=== PATIENT | male | born 1950 | race Caucasian/White ===

== ENCOUNTER 2020-09-20 08:47 | Inpatient (IN) | payer MEDICARE ==
[2020-09-20 09:17] LABS: #Eosinphils 0.2 thou/uL (0.0-0.7); #Lymphocytes 1.3 thou/uL (1.20-3.40); #Monocytes 0.4 thou/uL (0.11-0.59); #Neutrophils 4.9 thou/uL (1.40-6.50); %Basophils 0.7 % (0.0-1.0); %Eosinophils 2.3 % (0.0-10.0); %Lymphocytes 18.5 % (21.0-51.0); %Monocytes 5.9 % (0.0-10.0); %Neutrophils 72.7 % (42.0-75.0); Hemoglobin 16.3 g/dL (14.0-18.0); Mean Corpuscular HGB CONC 32.6 g/dL (32.0-36.0); Mean Corpuscular Hemoglobin 29.6 pg (27.0-31.0); Mean Corpuscular Volume 90.8 fL (78.0-98.0); Mean Platelet Volume 6.9 fL (7.4-10.4); Platelet Count 214 thou/uL (130-400); RBC Distribution Width 12.3 % (11.5-14.5); Red Blood Cell (RBC) Count 5.49 mill/uL (4.70-6.10); White Blood Cell (WBC) Count 6.8 thou/uL (4.8-10.8)
--- NOTE | 2020-09-20 09:21 | RAD ---
Portable frontal chest radiograph: 09/20/2020 COMPARISON: None HISTORY: Acute onset of chest pain with vomiting FINDINGS: Lungs are clear. Heart and mediastinal contours appear within normal limits. There is eleva tion of the right hemidiaphragm. IMPRESSION: No acute findings.
[2020-09-20 09:35] LABS: ALT (SGPT) 15 U/L (8-55); AST (SGOT) 20 U/L (5-34); Albumin 4.1 g/dL (3.4-4.8); Alkaline Phosphatase 75 U/L (40-110); Anion Gap 14 mmol/L (10-20); BUN (Urea Nitrogen) 19 mg/dL (8.4-25.7); Bilirubin, Total 0.7 mg/dL (0.2-1.2); Calc. Creatinine Clearance 0 mL/min (70-130); Calcium 8.8 mg/dL (7.8-10.44); Carbon Dioxide 23 mmol/L (23-31); Chloride 107 mmol/L (98-107); Globulin 2.7 g/dL (2.4-3.5); Glucose 144 mg/dL (83-110); Lipase 48 U/L (8-78); Protein, Total 6.8 g/dL (5.8-8.1); Sodium 140 mmol/L (136-145)
[2020-09-20 09:58] LABS: CKMB 1.8 ng/mL (0-6.6)
[2020-09-20] MEDS ORDERED: Nitroglycerin 0.4 MG TAB 1 EACH ONE (09:58)
[2020-09-20] MEDS ORDERED: Morphine 4 MG/ML VIAL ONE (10:10)
[2020-09-20] MEDS ORDERED: Iopamidol 370 76% 100 ML VIAL ONE (10:18)
--- NOTE | 2020-09-20 10:56 | PDOC.FPRHP ---
- History of Present Illness Chief Complaint: Chest pain History of Present Illness: Patient is 69 yo M with PMHx of HTN and HLD presenting to ED for chest pain. Chest pain started at 0745 while standing, getting ready for work with sharp pain, then turned to pressure ~10 mins later. The pain was accompanied by nausea. Pain is midsternal, reports tingling fingers and toes but no radiation of pain. Pain was mildly exacerbated by movement and reports some improvement with lying down. He took 324 mg ASA and then came to ED. Sx were somewhat relieved by nitro in EMS and in ED. The pain is now a 3 from a 6. 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 ED Course: Patient received SL nitro X2 in ED with nitro paste, 4 mg Morphine, 500 mL NS. - History PMHx: HTN, HLD, Depression, migraines (Losartan, simvastatin, citalopram, sumatriptan PRN for migraines) PSHx: Melanoma-Mohs surgery FHx: Mom of VA @ 72, Dad had VA @ 53, possible CABG, Brother with VA @ 53, Diabetes Social: Denies smoking cigarettes, drinking alcohol, drugs NKDA, PCP Greta @ [employer] - Review of Systems General: denies: fever/chills, weight/appetite/sleep changes ENT: denies: nasal congestion, rhinorrhea Respiratory: denies: cough, shortness of breath Cardiovascular: reports: chest pain, palpitation. denies: edema Gastrointestinal: reports: nausea. denies: vomiting, diarrhea, constipation, GI bleeding Genitourinary: denies: incontinence, dysuria Skin: denies: rashes, lesions Musculoskeletal: denies: pain, tenderness Neurological: reports: numbness. denies: syncope, weakness Psychological: reports: anxiety (Stress- previously was on abilify but stopped), depression - Vital signs BP: 162/81, Pulse: 58, Resp: 18, Temp: 98.5 (Oral), Pain: 2, O2 sat: 99 on (Room Air), Time: 09/20/2020 08:53. BP: 172/85, Pulse: 62, Resp: 17, Pain: 2, O2 sat: 99 on (Room Air), Time: 09/20/2020 09:05. BP: 147/77, MAP: 100, Pulse: 53, Resp: 14, Pain: 4, O2 sat: 99 on (Room Air), Time: 09/20/2020 10:00. BP: 137/70, MAP: 92, Pulse: 58, Resp: 17, Temp: 98.3 (Oral), Pain: 2, O2 sat: 95 on (Room Air), Time: 09/20/2020 12:30. BP: 144/75, MAP: 98, Pulse: 56, Resp: 12, Pain: 2, O2 sat: 98 on (Room Air), Time: 09/20/2020 11:00. BP: 136/72, MAP: 93, Pulse: 60, Resp: 17, Pain: 2, O2 sat: 97 on (Room Air), Time: 09/20/2020 12:00. 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 Psychiatric: normal mood and affect, good judgment and insight, intact recent and remote memory FMR H&P: Results - Labs Result Diagrams: 09/20/20 09:04 09/20/20 09:04 Lab results: WBC 6.8 thou/uL (4.8-10.8) 09/20/20 09:04 Hgb 16.3 g/dL (14.0-18.0) 09/20/20 09:04 Hct 49.8 % (42.0-52.0) 09/20/20 09:04 MCV 90.8 fL (78.0-98.0) 09/20/20 09:04 Plt Count 214 thou/uL (130-400) 09/20/20 09:04 Neutrophils % 72.7 % (42.0-75.0) 09/20/20 09:04 Sodium 140 mmol/L (136-145) 09/20/20 09:04 Potassium 4.0 mmol/L (3.5-5.1) 09/20/20 09:04 Chloride 107 mmol/L (98-107) 09/20/20 09:04 Carbon Dioxide 23 mmol/L (23-31) 09/20/20 09:04 BUN 19 mg/dL (8.4-25.7) 09/20/20 09:04 Creatinine 1.11 mg/dL (0.7-1.3) 09/20/20 09:04 Glucose 144 mg/dL (83-110) H 09/20/20 09:04 Calcium 8.8 mg/dL (7.8-10.44) 09/20/20 09:04 Total Bilirubin 0.7 mg/dL (0.2-1.2) 09/20/20 09:04 AST 20 U/L (5-34) 09/20/20 09:04 ALT 15 U/L (8-55) 09/20/20 09:04 Alkaline Phosphatase 75 U/L (40-110) 09/20/20 09:04 CK-MB (CK-2) 1.8 ng/mL (0-6.6) 09/20/20 09:04 B-Natriuretic Peptide Less than 10.0 pg/mL (0-100) 09/20/20 09:04 Serum Total Protein 6.8 g/dL (5.8-8.1) 09/20/20 09:04 Albumin 4.1 g/dL (3.4-4.8) 09/20/20 09:04 Lipase 48 U/L (8-78) 09/20/20 09:04 - EKG Interpretation EKG: EKG X2 reviewed, bradycardia with possible J point elevation in V2-3, elevation decreased from the first to second EKG - Radiology Interpretation Chest x-ray Status: image reviewed by me, report reviewed by me Additional comment: No acute intrathoracic process FMR H&P: A/P - Plan Unstable Angina - Pain occurring with exertion and at rest, improved with nitro - FMR H&P: Upper Level - Plan Date/Time: 09/20/20 1056 HPI: 69 yo M with PMH of HTN, HLD, and family history of VA in 2 male relatives at age 53 presents for chest pain that started this morning at 7:45 while he was getting ready for work. Chest pain was characterized as substernal stabbing and pressure, denied radiation. Associated symptoms include diaphoresis, nausea, dry heaving, and lightheadedness. He reported symptoms may have been worse while walking, and slightly improved while lying down. Nitro improved his chest pain. In the ED, two EKGs were performed which showed bradycardia, no STEMI, prominent T waves in V3-V4. CXR showed no acute findings. Troponin was indeterminate at 0.029, then trended up to 1.9. CKMB was wnl. Lipase normal. He was given ASA 324 mg, nitro, morphine, and 500 ml NS bolus. Cardiology, Dr. Mckeon was consulted and recommended a right sided EKG and therapeutic lovenox. Physical exam: General: Patient appears comfortable lying in bed, slighly diaphoretic Cardiac: RRR, no murmurs. Pulses 2+ BUE. No LE swelling. Lungs: BCTA Abd: soft, nontender, +BS A/P: NSTEMI -Dr. Mckeon consulted, appreciate recommendations -Troponin trended upwards, continue to trend -Continue therapeutic lovenox -Heart score of 7 -A1C, TSH, FLP pending for risk stratification -Nitro PRN -NPO at midnight HTN, HLD, MDD, OCD -Continue home medications Julienne Montemayor MD PGY3 I, Jen Montemayor MD, have evaluated this patient and agree with findings/plan as outlined by security intern resident. Pertinent changes/additions are listed here. Addendum - Attending - Attending Attestation Date/Time: 09/20/20 8900 I personally evaluated the patient and discussed the management with Dr. Montemayor/Jasper. I agree with the History, Examination, Assessment and Plan documented above with any addition or exceptions noted below.
[2020-09-20] MEDS ORDERED: Enoxaparin Sodium 80 MG/0.8 ML SYRINGE ONE (11:59)
[2020-09-20 13:06] LABS: Troponin I 1.946 ng/mL (< 0.028)
[2020-09-20] MEDS ORDERED: Communication Order-Pharmacy FS SCH ×2 (14:30→20:51)
[2020-09-20] MEDS ORDERED: Lidocaine 1% (PF) 30 ML VIAL ONE (14:33)
[2020-09-20] MEDS ORDERED: Heparin 10,000 UNITS/ 10 ML VIAL ONE (14:33)
[2020-09-20] MEDS ORDERED: Nitroglycerin 100MG/250ML BOT 250 ML ONE (15:00)
[2020-09-20] MEDS ORDERED: Verapamil 5 MG/2 ML VIAL ONE (15:00)
[2020-09-20] MEDS ORDERED: Senokot S 8.6-50 MG TAB PO PRN (16:10)
[2020-09-20] MEDS ORDERED: Acetaminophen/Codeine 30-300mg Tablet PO PRN ×2 (16:10)
[2020-09-20] MEDS ORDERED: Sodium Chloride 0.9% 200 ML IV PRN (16:10)
[2020-09-20] MEDS ORDERED: Bisacodyl 10 MG SUPP PR PRN (16:10)
[2020-09-20] MEDS ORDERED: Calcium Carbonate 500 MG ChewTAB PO PRN (16:10)
[2020-09-20] MEDS ORDERED: Ondansetron PF 4 MG/2 ML Vial IVP PRN (16:10)
[2020-09-20] MEDS ORDERED: Nitroglycerin 0.4 MG TAB (25 Tab Bottle) SL PRN (16:10)
[2020-09-20] MEDS ORDERED: Bisacodyl 5 MG TAB PO PRN (16:10)
[2020-09-20] MEDS ORDERED: Ondansetron ODT 4 MG TAB PO PRN (16:10)
[2020-09-20] MEDS ORDERED: Acetaminophen 650 MG Suppository PR PRN (16:10)
[2020-09-20] MEDS ORDERED: Acetaminophen 325 MG TAB PO PRN (16:10)
[2020-09-20 17:01] LABS: Hemoglobin A1c 5.8 % (4.0-6.0)
[2020-09-20 17:26] LABS: SARS-CoV-2 PCR by NAA Not Detected (NotDetected)
[2020-09-20 17:35] LABS: Troponin I 21.907 ng/mL (< 0.028)
[2020-09-20] MEDS ORDERED: Atorvastatin Calcium 40 MG TAB PO SCH (21:00)
[2020-09-20] MEDS ORDERED: Enoxaparin Sodium 80 MG/0.8 ML SYRINGE SC SCH ×2 (21:00)
--- NOTE | 2020-09-20 21:02 | CON ---
DATE OF CONSULTATION: 09/20/2020 INDICATION FOR CONSULTATION: 69-year-old gentleman with eet-LS-mvyaqud elevation myocardial infarction. HISTORY OF PRESENT ILLNESS: Mr. Gunter is a 69-year-old gentleman who has been having some chest pain since about 7:45 this morning. He described it to be in a constant pain in the lower retrosternal area. He was brought to the emergency room and prior to that, he felt clammy, dizzy, nauseated. He was treated with aspirin prior to his going to the emergency room. He also was given nitroglycerin by the ambulance. When he arrived here, was still having pain, was given morphine. EKG did not show any acute changes. Even in right side, EKG does not show any acute changes, but unfortunately, morphine did help his pain, but now the pain is returning. The pain has never completely gone away and based on his presentation symptoms and risk factors, I have advised him to undergo cardiac catheterization since the cardiac enzymes are now positive for myocardial infarction. On admission, his cardiac enzymes showed a troponin I of 0.029. This now increased up to 1.946 and given the presentation most likely indicate a myocardial infarction. I have discussed this with him and he is agreeable to proceed with cardiac catheterization as a definitive etiology of his chest pain and also since he continues to have pain without relief. PAST MEDICAL HISTORY: Significant for hypertension, hypercholesterolemia, OCD, and depression as well as occasional migraines. SOCIAL HISTORY: He is . He has children, who are alive and well. He does not smoke. He has no significant alcohol use. He runs a business for large trucks. FAMILY HISTORY: Positive for myocardial infarction both in his mother, his father and a brother. His mother had from an IL at age 72. His father and brother had MIs at age 53. His father had a bypass surgery. He has a brother who underwent stents but then within the last few months due to COVID. MEDICATIONS: Prior to admission include; 1. Simvastatin. 2. Losartan. 3. Citalopram. 4. Occasional sumatriptan. ALLERGIES: NONE. REVIEW OF SYSTEMS: 12-point review of systems unremarkable except for recently some type of eye infection for which he has been receiving drops. He has also had recently received hearing aids. Otherwise, 12-point review of systems is unremarkable except as noted in the History of Present Illness. PHYSICAL EXAMINATION: GENERAL: Reveals a well-developed, well-nourished, very pleasant gentleman. VITAL SIGNS: Blood pressure 136/71. He is afebrile. Heart rate is 60 and regular. HEENT: Shows the head to be normocephalic and atraumatic. Carotid pulses are present. There are no bruits. CHEST: Clear to auscultation without rales, rhonchi, or wheezing. CARDIOVASCULAR: Reveals a regular rate and rhythm with normal S1, S2. There is no S3 or S4. There were no significant murmurs, heaves, thrills, bruits, or rubs. ABDOMEN: Soft and nontender. Positive bowel sounds are present. There is no organomegaly or masses noted. EXTREMITIES: Femoral pulses are present. Pedal pulses are present. NEUROLOGIC: The patient appears to be intact. There is no edema. IMAGING STUDIES: EKG shows normal sinus rhythm, heart rate in the 50s and 60s. There were no acute changes, but given the fact that he continues to have pain and enzymes continue to increase, I have advised him to undergo cardiac catheterization. IMPRESSION: 1. Acute [id number] elevation myocardial infarction with continued chest pain and rising cardiac enzymes. The patient will undergo urgent cardiac catheterization as a definitive tool to evaluate for underlying severe coronary artery disease. 2. Hypertension. This is under good control at this time. 3. Hypercholesterolemia. I do not have a cholesterol level. He will continue his statin medications. He has been given subcu Lovenox in the emergency room. We will proceed with cardiac catheterization. I did explain to him the procedure, the risks to include bleeding, infection, possible myocardial infarction, CVA, renal insufficiency, allergic contrast reaction, and even possibility of . He understands and agrees to proceed. We will plan for emergent cardiac catheterization. He did receive Lovenox apparently at around noon today, it is now 2:24 in the afternoon. Job ID: [id number]
[2020-09-21] MEDS: Nitroglycerin 2% Ointment 1 INCH/1 GM Packet TOP SCH ×2 (00:12→06:17)
--- NOTE | 2020-09-21 03:24 | CON ---
DATE OF CONSULTATION: 09/20/2020 REASON FOR CONSULTATION: Evaluate the patient for coronary artery bypass grafting. HISTORY OF PRESENT ILLNESS: Mr. Gunter came to the emergency department with chest pain. He said it began today. Never had chest pain or shortness of breath before. 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 While he was being worked up, troponins initially returned at 0.029. His EKG was unremarkable. The troponin later in the day returned at 1.[address] Mckeon was contacted and she urgently took him to the experimental machining lab manager and found to have severe three-vessel disease. Left ventricular function is preserved. I have been asked to see him to discuss coronary artery bypass grafting. PAST MEDICAL HISTORY: 1. Coronary artery disease. 2. Hypertension. 3. Dyslipidemia. 4. Depression. PAST SURGICAL HISTORY: Melanoma surgery on his leg. SOCIAL HISTORY: He does not use tobacco. He is . FAMILY HISTORY: He has significant family history of coronary artery disease in numerous first-degree relatives. HOME MEDICATIONS: 1. Losartan 50 mg daily. 2. Celexa 40 mg daily. 3. Simvastatin 40 mg daily. ALLERGIES: NONE. REVIEW OF SYSTEMS: A 10-point review of systems is performed and is negative except as above. PHYSICAL EXAMINATION: GENERAL: This is a well-developed, well-nourished male, resting comfortably in the bed on the telemetry unit. He has no significant pain at this time. VITAL SIGNS: His height is 5 feet 10 inches and weight is 183 pounds. BSA is 2.03. Temperature is 98.1, pulse is 98 and regular, and blood pressure is 138/65. HEENT: Sclerae nonicteric. Pupils equal and round bilaterally. NECK: Supple. He has no carotid bruits. CHEST: Clear bilaterally. HEART: Rhythm is regular. He has no murmurs. ABDOMEN: Soft and nontender. EXTREMITIES: No cyanosis, clubbing, or edema. VASCULAR: Palpable carotid, radial, femoral, and posterior tibial pulses bilaterally. VENOUS: There are no venous varicosities or venous stasis change. PSYCHIATRIC: He is awake, alert, and oriented to person, place, and time. LABORATORY DATA: Of note, creatinine is 1.1, potassium is 4.0, hemoglobin is 16.3, platelet count 214,000. Chest x-ray shows no dominant lung mass. ASSESSMENT AND PLAN: This is a pleasant 69-year-old gentleman with dlq-KR-[id number] myocardial infarction and severe three-vessel disease. Potential bypassable targets included posterolateral, right coronary, LAD, diagonal, and OM. Risks, benefits, and options of bypass have been discussed with him and he is agreeable to proceed in the morning. Job ID: [id number]
[2020-09-21 05:15] LABS: SARS-CoV-2 PCR by NAA Not Detected (NotDetected)
--- NOTE | 2020-09-21 06:19 | PDOC.FM ---
- Subjective Subjective: Patient feeling well this AM, denies CP, SOB, N/V. He endorses mild bilateral frontal GARLAND, denies vision changes. He has no questions about the planned procedure. - Objective MAR Reviewed: Yes Vital Signs & Weight: Vital Signs (12 hours) Temp Pulse Resp BP Pulse Ox 09/21/20 04:46 98 09/21/20 04:00 98.7 F 80 17 137/74 96 09/21/20 00:00 88 09/20/20 20:35 98 09/20/20 20:10 98.5 F 88 14 136/65 98 Weight Weight 81.465 kg I&O: 09/19/20 09/20/20 09/21/20 06:59 06:59 06:59 Intake Total 480 Output Total 150 Balance 330 Result Diagrams: 09/21/20 13:35 09/21/20 13:35 Phys Exam - Physical Examination Constitutional: NAD resting comfortably Respiratory: no wheezing, no rales, no rhonchi, clear to auscultation bilateral Cardiovascular: RRR, no significant murmur, no rub Gastrointestinal: soft, non-tender, no distention, positive bowel sounds Dx/Plan - Plan Plan: A/P NSTEMI CAD - Patient with NSTEMI, troponin trending to 21 - Cardiology consulted, Dr. Mckeon, appreciate recs -Cath showing significant disease - CV surgery Dr. Andrade to proceed to CABG today -Thx Lovenox received -PRN nitro - Risk stratifying labs - Heart score 7 HTN - Resume home medications after CABG Depression - Continue home medications after CABG Diet: NPO @ 0000 DVT: SCD, thx lovenox- held after 9 pm Code: full PCP: Dr. Hernandes HOOP EXPANDER Dispo: Admit inpatient tele, CABG today. Addendum - Attending - Attending Attestation Date/Time: 09/21/20 3337 I personally evaluated the patient and discussed the management with Dr. Hutchinson. I agree with the History, Examination, Assessment and Plan documented above with any addition or exceptions noted below. seen post cabg. per nurse surgery went well. working towards extubation.
[2020-09-21] MEDS ORDERED: Phenylephrine 10 MG/ML VIAL ONE (06:48)
[2020-09-21] MEDS ORDERED: Fentanyl 100 MCG/2 ML VIAL ONE (06:48)
[2020-09-21] MEDS ORDERED: Dexmedetomidine 200 MCG/2 ML VIAL ONE (06:48)
[2020-09-21] MEDS ORDERED: Midazolam HCl 2 mg/2 ml Vial ONE ×2 (06:48→07:56)
[2020-09-21] MEDS ORDERED: Albumin 5% 500 ML ONE (07:09)
[2020-09-21] MEDS ORDERED: EPINEPHrine 1 MG/ML AMP ONE (07:09)
[2020-09-21] MEDS ORDERED: Bupivacaine PF 0.5% 30 ML VIAL ONE (07:09)
[2020-09-21] MEDS ORDERED: Dexamethasone 4 mg/ml Vial ONE (07:09)
[2020-09-21] MEDS ORDERED: Heparin 10,000 UNITS/1 ML VIAL 30,000 UNITS in Sodium Chloride 0.9% 1,000 ML FS SCH (07:15)
[2020-09-21] MEDS ORDERED: CEFAZOLIN 2 GM in Premix Bag 1 BAG IVPB SCH (07:30)
[2020-09-21] MEDS ORDERED: Nitroglycerin 50 MG/250 ML BOT 250 ML ONE (07:38)
[2020-09-21] MEDS ORDERED: Norepinephrine 4 MG/4 ML VIAL ONE (07:38)
[2020-09-21] MEDS ORDERED: Propofol 500 MG/50 ML VIAL ONE (07:39)
[2020-09-21] MEDS ORDERED: Ketamine 50 MG/ML (10ML VIAL) ONE (07:40)
[2020-09-21] MEDS ORDERED: Fentanyl 250 MCG/5 ML VIAL ONE (07:56)
[2020-09-21] MEDS ORDERED: Losartan 25 MG TAB PO SCH (09:00)
[2020-09-21] MEDS ORDERED: Citalopram 20 MG TAB PO SCH (09:00)
[2020-09-21] MEDS ORDERED: Insulin Regular 300 UNITS/3 ML VIAL ONE (09:33)
[2020-09-21] MEDS ORDERED: Phenylephrine 40 MG in Sodium Chloride 0.9% 250 ML 250 ML IVPB PRN (10:05)
[2020-09-21] MEDS ORDERED: Morphine 2 MG/ML VIAL SLOW IVP PRN (10:05)
[2020-09-21] MEDS ORDERED: Acetaminophen 325 MG TAB PO PRN (10:05)
[2020-09-21] MEDS ORDERED: Fentanyl 100 MCG/2 ML VIAL SLOW IVP PRN ×2 (10:05)
[2020-09-21] MEDS ORDERED: Ondansetron PF 4 MG/2 ML Vial IVP PRN (10:05)
[2020-09-21] MEDS ORDERED: Norepinephrine 8 MG/0.9% NS 250 ML IVPB PRN (10:05)
[2020-09-21] MEDS ORDERED: Hetastarch 6% 500 ML 500 ML IVPB PRN (10:05)
[2020-09-21] MEDS ORDERED: Mag-Al 1200 mg/1200 mg/30 ML UDCUP PO PRN (10:05)
[2020-09-21] MEDS ORDERED: Magnesium 2 GM/50 ML 2 GM in Premix Bag 1 BAG IVPB SCH (10:05)
[2020-09-21] MEDS ORDERED: Potassium Chloride 20 MEQ/100 ML PREMIX BAG IVPB PRN (10:05)
[2020-09-21] MEDS ORDERED: Guaifenesin DM 100-10/5 ML UDCUP PO PRN (10:05)
[2020-09-21] MEDS ORDERED: Bisacodyl 5 MG TAB PO PRN (10:05)
[2020-09-21] MEDS ORDERED: Bisacodyl 10 MG SUPP PR PRN (10:05)
[2020-09-21] MEDS ORDERED: Nitroglycerin 50 MG/250 ML BOT 250 ML IVPB PRN (10:05)
[2020-09-21] MEDS ORDERED: hydrALAZINE 20 MG/ML VIAL SLOW IVP PRN (10:05)
[2020-09-21] MEDS ORDERED: traMADol HCl 50 MG TAB PO PRN ×2 (10:05)
[2020-09-21] MEDS ORDERED: PROPOFOL 200 MG/20 ML VIAL ONE (10:18)
[2020-09-21] MEDS ORDERED: Papaverine 60 MG/2 ML VIAL ONE (10:18)
[2020-09-21] MEDS ORDERED: Mannitol 12.5 GM/50 ML ONE (10:18)
[2020-09-21] MEDS ORDERED: Magnesium Sulfate 1 GM/2 ML VIAL ONE (10:18)
[2020-09-21] MEDS ORDERED: Sodium Bicarb 50 MEQ/50 ML Abboject 8.4% SYRINGE ONE (10:18)
[2020-09-21] MEDS ORDERED: Thrombin 5000 UNITS/5 ML VIAL ONE (10:18)
[2020-09-21] MEDS ORDERED: Aminocaproic Acid 5 GM/20 ML VIAL ONE (10:18)
[2020-09-21] MEDS ORDERED: Lidocaine 1% PF 5 ML VIAL ONE (10:18)
[2020-09-21] MEDS ORDERED: Vecuronium 10 MG VIAL ONE (10:18)
[2020-09-21] MEDS ORDERED: Ketorolac Tromethamine 30 MG/ML VIAL ONE (10:18)
[2020-09-21] MEDS ORDERED: Potassium Chloride 60 MEQ/30 ML VIAL ONE (10:18)
[2020-09-21] MEDS ORDERED: Lidocaine 2% PF 100 mg/5 ml Syringe ONE (10:18)
[2020-09-21] MEDS ORDERED: Protamine Sulfate 250 MG/25 ML VIAL ONE (10:18)
[2020-09-21] MEDS ORDERED: Heparin 5,000 UNITS/ML VIAL ONE (10:18)
[2020-09-21] MEDS ORDERED: Rocuronium Bromide 10 MG/ML (10ML VIAL) ONE (10:18)
[2020-09-21] MEDS ORDERED: Calcium Chloride 1 GM/10 ML Abboject SYRINGE ONE (10:18)
[2020-09-21] MEDS ORDERED: Heparin 30,000 units/30 ml VIAL ONE (10:18)
[2020-09-21] MEDS ORDERED: Cardioplegic Soln 1,000 ML BAG ONE (10:18)
[2020-09-21] MEDS ORDERED: Ondansetron PF 4 MG/2 ML Vial ONE (10:18)
[2020-09-21] MEDS ORDERED: Dextrose 50% Abboject 50 ML SYRINGE SLOW IVP PRN (11:00)
[2020-09-21] MEDS ORDERED: Dextrose 5% in Water 1,000 ML IV PRN (11:00)
--- NOTE | 2020-09-21 13:34 | OP ---
DATE OF PROCEDURE: 09/21/2020 PREOPERATIVE DIAGNOSES: Coronary artery disease/status post non-ST elevation myocardial infarction/hypertension/dyslipidemia. POSTOPERATIVE DIAGNOSES: Coronary artery disease/status post non-ST elevation myocardial infarction/hypertension/dyslipidemia. PROCEDURES PERFORMED: 1. Coronary artery bypass grafting x4 -. a. Left internal mammary artery to 1.5 mm distal left anterior descending - good conduit and target. b. Reverse saphenous vein to 1.5 mm diagonal - good conduit and target. c. Reverse saphenous vein to 1.5 mm obtuse marginal-1 - good conduit target. d. Reverse saphenous vein to 1.5 mm distal right coronary artery - good conduit and target. Note, the PDA/PL system and the terminal obtuse marginal system were too small to bypass. BATCHER OPERATOR: Ti Valle MD ANESTHESIA: General endotracheal, Dr. Roge Downing and Dr. Jarrell Jesus. PUMP TIME: 72 minutes. CROSS-CLAMP TIME: 41 minutes. LOW-CORE TEMPERATURE: 34 degrees Celsius. CARD FIXER: Kane Kincaid. DRAINS: 24-Montenegrin chest tubes x2. DRIPS: None. TRANSFUSIONS: None. DESCRIPTION OF PROCEDURE: After appropriate consent was obtained, the patient was brought to the operating room and placed in supine position on the operating table. Appropriate central line and monitors were placed and general endotracheal anesthesia was induced. Chest, abdomen, and legs were prepped and draped in usual sterile fashion. Greater saphenous vein was harvested from the left lower extremity utilizing an endoscopic technique. Wounds were irrigated and closed in layers. Median sternotomy was performed. Left internal mammary artery was harvested as a pedicle graft. The patient was systemically heparinized. Distal pedicle was divided and infused with papaverine. Thymic fat and pericardium divided with electrocautery. Pericardial stay sutures were placed. Aortic and atrial cannulation was performed. After adequate heparinization, retrograde prime was performed and the patient was placed on cardiopulmonary bypass. Distal targets were marked. Aortic cross-clamp was applied and antegrade sanguineous cardioplegic arrest was obtained. 1 L of antegrade cold [place] cardioplegia was given. Topical cold solution was used. Reverse saphenous vein was anastomosed to the distal RCA in end-to-side fashion with running 7-0 Prolene suture. Anastomosis was tested and was hemostatic. Reverse saphenous vein was anastomosed to the OM in end-to-side fashion with running 7-0 Prolene suture. Anastomosis was tested and was hemostatic. Reverse saphenous vein was anastomosed to diagonal in end-to-side fashion with running 7-0 Prolene suture. Anastomosis was tested and was hemostatic. Mammary artery was brought through a window in the pericardium and anastomosed to LAD in end-to-side fashion with running 7-0 Prolene suture. On release of mammary clamps, good hooding of the anastomosis and good distal flow. Pedicle was secured with interrupted 6-0 Prolene suture. Cross-clamp was removed and partial occluding clamp placed. Saphenous vein to the OM and RCA were anastomosed to the aortic root. Saphenous vein to the diagonal was anastomosed to the sidewall of the OM graft. Partial occluding clamp was removed and graft was deaired. Anastomoses were all inspected for hemostasis, which was good. The patient was warmed and weaned off cardiopulmonary bypass. After resumption of sinus rhythm, good hemodynamics, temperature greater than 36.5, bypass was discontinued. Transfusion was given. Protamine was administered. Decannulation was performed and pursestring suture secured. A 24-Montenegrin chest tubes were placed in mediastinum. Vancomycin paste was placed on the sternal edges. After adequate hemostasis had been obtained, sternum was closed with #7 wire. Sternum was treated with platelet rich plasma. Wires were twisted and buried. Wounds irrigated, treated with platelet poor plasma and closed in multiple layers. Needle, sponge, and instrument counts were all reported as correct at the end of the procedure. The patient tolerated the procedure well, transferred to the intensive care unit in stable, but critical condition. Job ID: [id number]
[2020-09-21] MEDS: D5 1/2 NS w/20 mEq KCL 1,000 ML IV SCH (13:51)
[2020-09-21] MEDS: CEFAZOLIN 2 GM in Premix Bag 1 BAG IVPB SCH ×2 (13:51→22:16)
[2020-09-21] MEDS: Aspirin Chewable 81 MG TAB PO SCH (13:52)
[2020-09-21] MEDS: Famotidine/PF 20 mg/2ml Vial SLOW IVP SCH ×2 (13:53→20:42)
[2020-09-21] MEDS: Ketorolac Tromethamine 30 MG/ML VIAL IVP SCH ×3 (13:55→23:23)
--- NOTE | 2020-09-21 13:56 | RAD ---
Chest AP view INDICATION: History of open heart surgery COMPARISON: Prior exam dated September 20, 2020 FINDINGS: Lungs: There is bibasilar atelectasis, left greater than right. Cardiac silhouette: There is midline sternotomy changes. There is accentuation of the cardiac silhou ette due to exam technique. Pulmonary vasculature: Normal Pleural spaces: There is a left-sided thoracostomy tube. No definite pneumothorax is evident. Upper abdomen: No abnormality seen. Osseous structures: No acute osseous abnormality. Additional findings: Patient is intubated with the ET tube tip seen at the level of thoracic inlet. There is a right subclavian central venous catheter now in place with the tip in the region of the right atrium. There is a midline mediastinal drain. IMPRESSION: Postoperative chest with bibasilar atelectasis. No pneumothorax.
[2020-09-21 13:58] LABS: Hemoglobin 12.8 g/dL (14.0-18.0); Mean Corpuscular HGB CONC 31.1 g/dL (32.0-36.0); Mean Corpuscular Hemoglobin 27.7 pg (27.0-31.0); Mean Corpuscular Volume 89.1 fL (78.0-98.0); Mean Platelet Volume 6.8 fL (7.4-10.4); Platelet Count 169 thou/uL (130-400); RBC Distribution Width 12.3 % (11.5-14.5); Red Blood Cell (RBC) Count 4.63 mill/uL (4.70-6.10); White Blood Cell (WBC) Count 22.5 thou/uL (4.8-10.8)
[2020-09-21 13:59] LABS: Calcium, Ionized (arterial) 1.14 mmol/L (1.12-1.30); Carboxyhemoglobin (COHb) 0.3 gm% (0.0-3.0); Hemoglobin (Hb) 13.9 g/dL (14.0-18.0); O2 Tension (PaO2), arterial 189.4 mmHg (> 70.0); pH, Arterial 7.36 (7.35-7.45)
[2020-09-21 14:01] LABS: INR-International Normal Ratio 1.2; PTT 29.4 sec (22.9-36.1); Prothrombin Time 15.1 sec (12.0-14.7)
[2020-09-21 14:03] LABS: Puncture Site Arterial Line
[2020-09-21 14:10] LABS: Glucose 142 mg/dL (83-110)
[2020-09-21 14:13] LABS: Anion Gap 10 mmol/L (10-20); BUN (Urea Nitrogen) 13 mg/dL (8.4-25.7); Calc. Creatinine Clearance 101 mL/min (70-130); Calcium 7.8 mg/dL (7.8-10.44); Carbon Dioxide 22 mmol/L (23-31); Chloride 113 mmol/L (98-107); Glucose 141 mg/dL (83-110); Potassium 3.8 mmol/L (3.5-5.1); Sodium 141 mmol/L (136-145)
[2020-09-21 14:15] LABS: Band 22 % (5-11); Basophilic Stippling SLIGHT = 1-2 cells (100X) (None Seen); Lymphocytes 3 % (21-51); MDiff Complete? YES; Monocytes 5 % (0-10); Neutrophil 65 % (42-75); Platelet Morphology Comment Appears Adequate; Polychromasia SLIGHT = 2-3 cells (100X) (0-2/hpf); Reactive Lymphocytes 4 % (0-10)
[2020-09-21] MEDS: Insulin Regular 300 UNITS/3 ML VIAL SC PRN ×2 (14:28→22:35)
[2020-09-21 14:49] LABS: Potassium 3.9 mmol/L (3.5-5.1)
[2020-09-21 14:55] LABS: Actual Bicarbonate (HCO3a) 17.5 mEq/L (22-28); Base Excess (BEa) -5.1 mEq/L (-2.0 to +3.0); CO2 Tension 26.7 mmHg (35.0-45.0); Calcium, Ionized (arterial) 1.07 mmol/L (1.12-1.30); Carboxyhemoglobin (COHb) 0.5 gm% (0.0-3.0); Hemoglobin (Hb) 14.1 g/dL (14.0-18.0); Potassium - ABG Lab 3.68 mmol/L (3.70-5.30); pH, Arterial 7.43 (7.35-7.45)
[2020-09-21 14:56] LABS: ALV-art Gradient 75.825 mmHg (0-20); Puncture Site Arterial Line
[2020-09-21 19:04] LABS: Hemoglobin 14.2 g/dL (14.0-18.0)
[2020-09-21 19:27] LABS: Potassium 4.7 mmol/L (3.5-5.1)
--- NOTE | 2020-09-21 20:40 | EKG ---
Test Reason : POST CABG Blood Pressure : / mmHG Vent. Rate : 069 BPM Atrial Rate : 069 BPM P-R Int : 160 ms QRS Dur : 080 ms QT Int : 462 ms P-R-T Axes : 050 -64 093 degrees QTc Int : 495 ms Normal sinus rhythm Left axis deviation Low voltage QRS Inferior infarct (cited on or before 20-SEP-2020) Cannot rule out Anterior infarct (cited on or before 20-SEP-2020) T wave abnormality, consider lateral ischemia Abnormal ECG When compared with ECG of 20-SEP-2020 11:42, (Unconfirmed) Serial changes of Anterior infarct Present Confirmed by Nicola ARGUETA ([id number]) on 09/21/2020 8:39:34 PM Referred By: Malia FIGUEROA Confirmed By:Nicola ARGUETA
[2020-09-21] MEDS: Atorvastatin Calcium 20 MG TAB PO SCH (20:42)
[2020-09-22 04:16] LABS: #Lymphocytes 1.1 thou/uL (1.20-3.40); #Monocytes 1.2 thou/uL (0.11-0.59); #Neutrophils 10.7 thou/uL (1.40-6.50); %Basophils 0.2 % (0.0-1.0); %Eosinophils 0.1 % (0.0-10.0); %Lymphocytes 8.6 % (21.0-51.0); %Monocytes 8.9 % (0.0-10.0); %Neutrophils 82.2 % (42.0-75.0); Hemoglobin 13.4 g/dL (14.0-18.0); Mean Corpuscular HGB CONC 32.8 g/dL (32.0-36.0); Mean Corpuscular Hemoglobin 29.4 pg (27.0-31.0); Mean Corpuscular Volume 89.8 fL (78.0-98.0); Mean Platelet Volume 7.3 fL (7.4-10.4); Platelet Count 167 thou/uL (130-400); RBC Distribution Width 12.4 % (11.5-14.5); Red Blood Cell (RBC) Count 4.54 mill/uL (4.70-6.10); White Blood Cell (WBC) Count 13.1 thou/uL (4.8-10.8)
[2020-09-22 04:34] LABS: Anion Gap 9 mmol/L (10-20); BUN (Urea Nitrogen) 13 mg/dL (8.4-25.7); Calc. Creatinine Clearance 95 mL/min (70-130); Calcium 7.6 mg/dL (7.8-10.44); Carbon Dioxide 26 mmol/L (23-31); Chloride 109 mmol/L (98-107); Glucose 123 mg/dL (83-110); Potassium 4.3 mmol/L (3.5-5.1); Sodium 140 mmol/L (136-145)
[2020-09-22] MEDS: Insulin Regular 300 UNITS/3 ML VIAL SC PRN (04:47)
--- NOTE | 2020-09-22 05:07 | PDOC.FM ---
- Subjective Subjective: Patient feels well this morning. He is sitting up in bed drinking his coffee. Reports he ate a sandwich yesterday for supper. He reports his pain is well controlled s/p CABG yesterday. Reports he is passing gas. He was on nitro drip overnight, this was DC this morning. Art line is removed. - Objective Vital Signs & Weight: Vital Signs (12 hours) Temp Pulse Ox 09/22/20 04:00 97.8 F 09/22/20 00:00 98.3 F 09/21/20 20:00 95 09/21/20 19:00 98.3 F 09/21/20 18:27 98 Weight Admit Weight 83.325 kg Weight 81.465 kg Most Recent Monitor Data Heart Rate from ECG 78 NIBP 126/70 NIBP BP-Mean 88 Respiration from ECG 9 SpO2 96 I&O: 09/20/20 09/21/20 09/22/20 06:59 06:59 06:59 Intake Total 480 961.1 Output Total 150 1030 Balance 330 -68.9 Result Diagrams: 09/22/20 03:45 09/22/20 03:45 Phys Exam - Physical Examination Constitutional: NAD Respiratory: no wheezing, clear to auscultation bilateral Cardiovascular: RRR, no significant murmur Gastrointestinal: soft, non-tender, no distention, positive bowel sounds Musculoskeletal: pulses present trace pitting edema LLE Neurological: non-focal, moves all 4 limbs Psychiatric: normal affect, A&O x 3 Dx/Plan - Plan Plan: CAD and NSTEMI s/p 4V CABG - Presented with chest pain due to NSTEMI, was taken for angiocath which showed multi vessel disease - S/p 4V CABG by CV suglurdes Andrade 09/21/20. - Cardiology Dr Mckeon consulted, appreciate recs - CV Surgery Dr. Andrade consulted, appreciate recs - Pain control with tylenol, tramadol, toradol, fentanyl - Continue atorvastatin 20 mg, aspirin - Chest tube: 230 ml out - Admitted to ICU HTN - maintain goal SBP per CV surgery recs - PRN albumin & nitro drip to maintain appropriate SBP - art line now removed MDD - Resume home medication Lines: bilat chest tubes, Rt subclavian CVC Diet: Post CABG DVT ppx: per CV surgery recs Code: full PCP: Dr. Hernandes CONTRACT MANAGER Dispo: Patient is stable s/p CABG, continue monitoring in ICU. Appreciate CV surgery recommendations. Addendum - Attending - Attending Attestation Date/Time: 09/22/20 3743 I personally evaluated the patient and discussed the management with Dr. Montemayor. I agree with the History, Examination, Assessment and Plan documented above with any addition or exceptions noted below. post cabg care.
[2020-09-22] MEDS: Ketorolac Tromethamine 30 MG/ML VIAL IVP SCH ×3 (05:42→17:47)
[2020-09-22] MEDS: CEFAZOLIN 2 GM in Premix Bag 1 BAG IVPB SCH (05:42)
[2020-09-22 07:04] LABS: Cardiac Risk 4.5 (Less than 4.5)
--- NOTE | 2020-09-22 08:31 | RAD ---
EXAM: Portable chest PROVIDED CLINICAL HISTORY: Post open heart COMPARISON: 09/21/2020 FINDINGS: Cardiac and mediastinal silhouette unchanged in appearance. Median sternotomy changes, mediastinal an d pleural drainage catheters and right subclavian central line are redemonstrated. Elevation of the right hemidiaphragm persists with adjacent subsegmental atelectatic change. No focal consolidation, p leural fluid or pneumothorax evident. IMPRESSION: Stable radiographic appearance of chest.
[2020-09-22] MEDS ORDERED: Magnesium 2 GM/50 ML 2 GM in Premix Bag 1 BAG IVPB SCH (09:00)
[2020-09-22] MEDS: Aspirin Chewable 81 MG TAB PO SCH (09:41)
[2020-09-22] MEDS: Famotidine/PF 20 mg/2ml Vial SLOW IVP SCH ×2 (09:43→21:55)
--- NOTE | 2020-09-22 10:36 | PDOC.CPN ---
- Subjective Date: 09/22/20 Time: 10:34 Interval history: He is doing well. Sitting on the chair having breakfast. Passing gas. No BM. - Review of Systems General: denies: fever/chills, weight/appetite/sleep changes, night sweats, fatigue Respiratory: denies: cough, congestion, shortness of breath, exercise intolerance Cardiovascular: denies: chest pain, palpitation, edema, paroxysmal nocturnal dyspnea, orthopnea Gastrointestinal: denies: nausea, vomiting, diarrhea, constipation, abd pain, GI bleeding Musculoskeletal: denies: pain, tenderness, stiffness, swelling, arthritis/arthralgias Neurological: denies: numbness, syncope, seizure, weakness - Objective Allergies/Adverse Reactions: Allergies Allergy/AdvReac Type Severity Reaction Status Date / Time No Known Allergies Allergy Unverified 09/20/20 15:21 Visit Medications: Current Medications Acetaminophen (Acetaminophen 325 Mg Tab) 650 mg PO Q6H PRN PRN Reason: Headache/Fever Or Mild Pain Al Hydroxide/Mg Hydroxide (Mag-Al 1200 Mg/1200 Mg/30 Ml Udcup) 30 ml PO Q4H PRN PRN Reason: Indigestion Albuterol/Ipratropium (Ipratropium/Albuterol Sulfate 3 Ml Neb) 3 ml NEB [id number] PRN PRN Reason: SOB Aspirin (Aspirin Chewable 81 Mg Tab) 81 mg PO DAILY [facility] Last Admin: 09/22/20 09:41 Dose: 81 mg Documented by: Atorvastatin Calcium (Atorvastatin Calcium 20 Mg Tab) 20 mg PO QPM [facility] Last Admin: 09/21/20 20:42 Dose: 20 mg Documented by: Bisacodyl (Bisacodyl 5 Mg Tab) 10 mg PO Q12H PRN PRN Reason: Constipation Bisacodyl (Bisacodyl 10 Mg Supp) 10 mg ND Q12H PRN PRN Reason: Constipation Dextrose/Water (Dextrose 50% Abboject 50 Ml Syringe) 25 gm SLOW IVP PRN PRN PRN Reason: PER HYPOGLYCEMIC PROTOCOL Famotidine (Famotidine/Pf 20 Mg/2ml Vial) 20 mg SLOW IVP Q12HR [facility] Last Admin: 09/22/20 09:43 Dose: 20 mg Documented by: Fentanyl (Fentanyl 100 Mcg/2 Ml Vial) 25 mcg SLOW IVP Q2H PRN PRN Reason: Moderate Pain (4-6) Stop: 09/23/20 08:24 Fentanyl (Fentanyl 100 Mcg/2 Ml Vial) 50 mcg SLOW IVP Q2H PRN PRN Reason: Severe Pain (7-10) Stop: 09/23/20 08:24 Glucagon (Glucagon 1 Mg/Ml Vial) 1 mg SC PRN PRN PRN Reason: PER HYPOGLYCEMIC PROTOCOL Guaifenesin/Dextromethorphan (Guaifenesin Dm 100-10/5 Ml Udcup) 15 ml PO Q4H PRN PRN Reason: Cough Hydralazine HCl (Hydralazine 20 Mg/Ml Vial) 10 mg SLOW IVP Q6H PRN PRN Reason: To Maintain SBP< 140mmHG Nitroglycerin/Dextrose (Nitroglycerin 50 Mg/250 Ml Bot) 250 mls @ 0 mls/hr IVPB PRN PRN; Protocol PRN Reason: To Maintain SBP< 140mmHG Last Admin: 09/21/20 14:21 Dose: 250 mls Documented by: Potassium Chloride/Dextrose/Sod Cl (D5 1/2 Ns W/20 Meq Kcl) 1,000 mls @ 40 mls/hr IV .Q24H [facility] Last Admin: 09/21/20 13:51 Dose: 1,000 mls Documented by: Magnesium Sulfate 2 gm/ Device 50 mls @ 50 mls/hr IVPB QAM [facility] Stop: 09/23/20 09:59 Last Admin: 09/22/20 09:42 Dose: 50 mls Documented by: Norepinephrine Bitartrate (Levophed) 250 mls @ 0 mls/hr IVPB PRN PRN; Protocol PRN Reason: To maintain SBP > 90 mmHG Phenylephrine HCl 40 mg/ (Sodium Chloride) 254 mls @ 0 mls/hr IVPB INF PRN; Protocol PRN Reason: To maintain SBP > 90 mmHG Dextrose/Water (D5w) 1,000 mls @ 0 mls/hr IV INF PRN PRN Reason: PRN HYPOGLYCEMIC PROTOCOL Insulin Human Regular (Insulin Regular 300 Units/3 Ml Vial) 0 units SC Q4H PRN; Protocol PRN Reason: POST CABG SLIDING SCALE Last Admin: 09/22/20 04:47 Dose: 2 units Documented by: Ketorolac Tromethamine (Ketorolac Tromethamine 30 Mg/Ml Vial) 30 mg IVP Q6HR [facility] Stop: 09/24/20 12:01 Last Admin: 09/22/20 05:42 Dose: 30 mg Documented by: Morphine Sulfate (Morphine 2 Mg/Ml Vial) 2 mg SLOW IVP Q15MIN PRN PRN Reason: Severe Pain (7-10) Ondansetron HCl (Ondansetron Pf 4 Mg/2 Ml Vial) 4 mg IVP Q6H PRN PRN Reason: Nausea/Vomiting Potassium Chloride (Potassium Chloride 20 Meq/100 Ml Premix Bag) 20 meq IVPB PRN PRN PRN Reason: K level </= 4.0 Last Admin: 09/21/20 14:38 Dose: 20 meq Documented by: Sodium Chloride (Flush - Normal Saline 10 Ml Syringe) 10 ml IVF PRN PRN PRN Reason: Saline Flush Tramadol HCl (Tramadol Hcl 50 Mg Tab) 50 mg PO Q12H PRN PRN Reason: Pain Tramadol HCl (Tramadol Hcl 50 Mg Tab) 100 mg PO Q12H PRN PRN Reason: Pain Vital Signs & Weight: Vital Signs Temp Pulse Ox 09/22/20 08:00 97 09/22/20 07:13 94 L 09/22/20 07:00 99 F 09/22/20 04:00 97.8 F 09/22/20 00:00 98.3 F Admit Weight 183 lb 11.2 oz Weight 188 lb 0.869 oz - Physical Exam General: alert & oriented x3 HEENT: mucus membranes moist Neck: supple neck Cardiac: regular rate and rhythm Lungs: normal breath sounds Neuro: grossly intact Abdomen: active bowel sounds Extremities: no edema Skin: clear Musculoskeletal: no pain - Labs Result Diagrams: 09/22/20 03:45 09/22/20 03:45 Troponin/CKMB CK-MB (CK-2) 1.8 ng/mL (0-6.6) 09/20/20 09:04 Troponin I 21.907 ng/mL (< 0.028) H* 09/20/20 16:42 - Telemetry Sinus rhythms and dysrhythmias: sinus rhythm - Assessment/Plan Assessment/Plan: 1. NSTEMI 2. Multivessel CAD 3. S/P CABG 09/21 4. HTN 5. HLP. PLAN: - ASA/Statin for life - BB and ACEI once BP allow - PT as tolerated.
[2020-09-22] MEDS: D5 1/2 NS w/20 mEq KCL 1,000 ML IV SCH (11:48)
[2020-09-22] MEDS ORDERED: Bisacodyl 10 MG SUPP PR PRN (17:00)
[2020-09-22] MEDS ORDERED: Mag-Al 1200 mg/1200 mg/30 ML UDCUP PO PRN (17:00)
[2020-09-22] MEDS ORDERED: Nitroglycerin 0.4 MG TAB (25 Tab Bottle) SL PRN (17:00)
[2020-09-22] MEDS ORDERED: Mineral Oil ENEMA PR PRN (17:00)
[2020-09-22] MEDS ORDERED: Bisacodyl 5 MG TAB PO PRN (17:00)
[2020-09-22] MEDS ORDERED: Zolpidem Tartrate 5 MG TAB PO PRN (17:00)
[2020-09-22] MEDS ORDERED: Guaifenesin DM 100-10/5 ML UDCUP PO PRN (17:00)
[2020-09-22] MEDS ORDERED: diphenhydrAMINE 25 MG CAP PO PRN (17:00)
[2020-09-22] MEDS: Furosemide 40 MG TAB PO SCH (17:48)
[2020-09-22] MEDS ORDERED: Sodium Chloride 0.9% 10 ML ONE ×2 (21:39→23:23)
[2020-09-22] MEDS: Atorvastatin Calcium 20 MG TAB PO SCH (21:55)
[2020-09-23] MEDS: Ketorolac Tromethamine 30 MG/ML VIAL IVP SCH ×4 (00:10→17:38)
[2020-09-23 04:46] LABS: #Basophils 0.1 thou/uL (0.0-0.2); #Eosinphils 0.1 thou/uL (0.0-0.7); #Lymphocytes 1.6 thou/uL (1.20-3.40); #Neutrophils 8.4 thou/uL (1.40-6.50); %Basophils 0.5 % (0.0-1.0); %Lymphocytes 14.4 % (21.0-51.0); %Monocytes 9.3 % (0.0-10.0); %Neutrophils 74.9 % (42.0-75.0); Hemoglobin 11.9 g/dL (14.0-18.0); Mean Corpuscular HGB CONC 33.1 g/dL (32.0-36.0); Mean Corpuscular Hemoglobin 29.7 pg (27.0-31.0); Mean Corpuscular Volume 89.7 fL (78.0-98.0); Mean Platelet Volume 7.6 fL (7.4-10.4); Platelet Count 150 thou/uL (130-400); RBC Distribution Width 12.1 % (11.5-14.5); Red Blood Cell (RBC) Count 4.01 mill/uL (4.70-6.10); White Blood Cell (WBC) Count 11.2 thou/uL (4.8-10.8)
[2020-09-23 05:08] LABS: Anion Gap 11 mmol/L (10-20); BUN (Urea Nitrogen) 23 mg/dL (8.4-25.7); Calc. Creatinine Clearance 81 mL/min (70-130); Calcium 7.3 mg/dL (7.8-10.44); Carbon Dioxide 24 mmol/L (23-31); Chloride 108 mmol/L (98-107); Glucose 113 mg/dL (83-110); Potassium 4.1 mmol/L (3.5-5.1); Sodium 139 mmol/L (136-145)
[2020-09-23] MEDS ORDERED: Sodium Chloride 0.9% 10 ML ONE (05:41)
--- NOTE | 2020-09-23 07:15 | PDOC.FM ---
- Subjective Subjective: Patient reports he is doing well. Pain is well controlled. He ate well yesterday. Reports some chest pain with cough and movement, denies SOB or palpitations. NSR overnight. - Objective Vital Signs & Weight: Vital Signs (12 hours) Temp Pulse Resp BP Pulse Ox 09/23/20 04:00 99.8 F H 90 18 104/60 98 09/23/20 03:28 98 09/23/20 00:15 18 98 09/23/20 00:10 98.8 F 86 20 106/57 L 93 L 09/22/20 19:50 99.2 F 88 18 105/76 94 L Weight Admit Weight 83.325 kg Weight 83.915 kg Most Recent Monitor Data Heart Rate from ECG 78 NIBP 105/62 NIBP BP-Mean 76 Respiration from ECG 17 SpO2 98 I&O: 09/22/20 09/23/20 09/24/20 06:59 06:59 06:59 Intake Total 1361.1 600 Output Total 1090 1215 Balance 271.1 -615 Result Diagrams: 09/23/20 03:56 09/23/20 03:56 Phys Exam - Physical Examination Constitutional: NAD Respiratory: no wheezing, clear to auscultation bilateral Cardiovascular: RRR, no significant murmur Gastrointestinal: soft, non-tender Musculoskeletal: no edema, pulses present Neurological: non-focal, moves all 4 limbs Psychiatric: normal affect, A&O x 3 Skin: normal turgor, cap refill <2 seconds Dx/Plan - Plan Plan: CAD and NSTEMI s/p 4V CABG - Presented with chest pain due to NSTEMI, was taken for angiocath which showed multi vessel disease - S/p 4V CABG by CV sugery Dr. Andrade 09/21/20. - Cardiology Dr Mckeon consulted, appreciate recs -Start BB and SANFORD once BP will allow - CV Surgery Dr. Andrade consulted, appreciate recs - Pain control with tylenol, tramadol, toradol, fentanyl - Continue atorvastatin 20 mg, aspirin - Chest tube: 160 ml out - AM CXR pending HTN - BB and SANFORD once BP will allow MDD - Resume home medication Diet:HH DVT ppx: per CV surgery recs Code: full PCP: Dr. Hernandes [employer]ARED SERVICES MANAGER Dispo: Patient is stable on telemetry floor. Continue PT. Appreciate CV surgery recommendations. Julienne Montemayor MD PGY3 Addendum - Attending - Attending Attestation Date/Time: 09/23/20 [id number] I personally evaluated the patient and discussed the management with Dr. Montemayor. I agree with the History, Examination, Assessment and Plan documented above with any addition or exceptions noted below. will start ACEI and BB once BP improved. pain controlled. awaiting specialist recs.
--- NOTE | 2020-09-23 08:06 | RAD ---
EXAM: CHEST ONE VIEW HISTORY: Post CABG. COMPARISON: 09/22/2020 FINDINGS: Postoperative changes related to median sternotomy are again seen. Cardiac silhouette is magnified by projection and shallow depth inspiration. Right subclavian central venous catheter, mediastinal drain, and left-sided thoracostomy tube remain in place. Atelectasis is present at the left lung base . No pneumothorax is visualized. No other interval change. IMPRESSION: Lines and tubes in place as described above with volume loss left lung base.
[2020-09-23] MEDS: Aspirin Chewable 81 MG TAB PO SCH (09:26)
[2020-09-23] MEDS: Citalopram 20 MG TAB PO SCH (09:26)
[2020-09-23] MEDS: Famotidine/PF 20 mg/2ml Vial SLOW IVP SCH ×2 (09:26→20:51)
--- NOTE | 2020-09-23 16:47 | PDOC.CPN ---
- Subjective Date: 09/23/20 Time: 16:46 Interval history: He is doing well. he had a BM this morning. Has been walking with PT without issues. Has a small hematoma on his left thigh from venous harvesting. Had chest tubes removed. - Review of Systems General: denies: fever/chills, weight/appetite/sleep changes, night sweats, fatigue Respiratory: denies: cough, congestion, shortness of breath, exercise intolerance Cardiovascular: denies: chest pain, palpitation, edema, paroxysmal nocturnal dyspnea, orthopnea Gastrointestinal: denies: nausea, vomiting, diarrhea, constipation, abd pain, GI bleeding Musculoskeletal: denies: pain, tenderness, stiffness, swelling, arthritis/arthralgias Neurological: denies: numbness, syncope, seizure, weakness - Objective Allergies/Adverse Reactions: Allergies Allergy/AdvReac Type Severity Reaction Status Date / Time No Known Allergies Allergy Unverified 09/20/20 15:21 Visit Medications: Current Medications Al Hydroxide/Mg Hydroxide (Mag-Al 1200 Mg/1200 Mg/30 Ml Udcup) 30 ml PO Q4H PRN PRN Reason: Indigestion Albuterol/Ipratropium (Ipratropium/Albuterol Sulfate 3 Ml Neb) 3 ml NEB [id number] PRN PRN Reason: SOB Aspirin (Aspirin Chewable 81 Mg Tab) 81 mg PO DAILY [facility] Last Admin: 09/23/20 09:26 Dose: 81 mg Documented by: Atorvastatin Calcium (Atorvastatin Calcium 20 Mg Tab) 20 mg PO QPM [facility] Last Admin: 09/22/20 21:55 Dose: 20 mg Documented by: Bisacodyl (Bisacodyl 5 Mg Tab) 10 mg PO Q12H PRN PRN Reason: Constipation Bisacodyl (Bisacodyl 10 Mg Supp) 10 mg OR Q12H PRN PRN Reason: Constipation Citalopram Hydrobromide (Citalopram 20 Mg Tab) 40 mg PO DAILY [facility] Last Admin: 09/23/20 09:26 Dose: 40 mg Documented by: Diphenhydramine HCl (Diphenhydramine 25 Mg Cap) 25 mg PO Q6H PRN PRN Reason: Itching & Insomnia or Gary Tad Famotidine (Famotidine/Pf 20 Mg/2ml Vial) 20 mg SLOW IVP Q12HR [facility] Last Admin: 09/23/20 09:26 Dose: 20 mg Documented by: Furosemide (Furosemide 40 Mg Tab) 40 mg PO Q24HR [facility] Stop: 09/23/20 17:01 Last Admin: 09/22/20 17:48 Dose: 40 mg Documented by: Guaifenesin/Dextromethorphan (Guaifenesin Dm 100-10/5 Ml Udcup) 15 ml PO Q4H PRN PRN Reason: Cough Ketorolac Tromethamine (Ketorolac Tromethamine 30 Mg/Ml Vial) 15 mg IVP Q6HR [facility] Stop: 09/24/20 12:01 Last Admin: 09/23/20 12:13 Dose: 15 mg Documented by: Mineral Oil (Mineral Oil Enema) 133 ml OR DAILYPRN PRN PRN Reason: Constipation Nitroglycerin (Nitroglycerin 0.4 Mg Tab (25 Tab Bottle)) 0.4 mg SL Q5MIN PRN PRN Reason: Chest Pain Ondansetron HCl (Ondansetron Pf 4 Mg/2 Ml Vial) 4 mg IVP Q6H PRN PRN Reason: Nausea/Vomiting Tramadol HCl (Tramadol Hcl 50 Mg Tab) 50 mg PO Q12H PRN PRN Reason: Pain Tramadol HCl (Tramadol Hcl 50 Mg Tab) 100 mg PO Q12H PRN PRN Reason: Pain Zolpidem Tartrate (Zolpidem Tartrate 5 Mg Tab) 5 mg PO HSPRN PRN PRN Reason: Insomnia Vital Signs & Weight: Vital Signs Temp Pulse Pulse Pulse Resp BP BP 09/23/20 16:41 98.8 F 85 18 09/23/20 11:44 98.7 F 75 16 09/23/20 11:20 73 80 136/61 112/57 L 09/23/20 09:16 98.7 F 94 16 09/23/20 08:45 94 98 108/60 100/55 L BP BP Pulse Ox Pulse Ox Pulse Ox 09/23/20 16:41 102/56 L 95 09/23/20 11:44 113/58 L 94 L 09/23/20 11:20 97 96 09/23/20 09:16 102/57 L 92 L 09/23/20 08:45 96 95 Admit Weight 183 lb 11.2 oz Weight 185 lb - Physical Exam General: alert & oriented x3 HEENT: mucus membranes moist Neck: supple neck Cardiac: regular rate and rhythm Lungs: normal breath sounds Neuro: grossly intact Abdomen: active bowel sounds Extremities: no edema Skin: clear Musculoskeletal: no pain - Labs Result Diagrams: 09/23/20 03:56 09/23/20 03:56 Troponin/CKMB CK-MB (CK-2) 1.8 ng/mL (0-6.6) 09/20/20 09:04 Troponin I 21.907 ng/mL (< 0.028) H* 09/20/20 16:42 - Telemetry Sinus rhythms and dysrhythmias: sinus rhythm - Assessment/Plan Assessment/Plan: 1. NSTEMI 2. Multivessel CAD 3. S/P CABG 09/21 4. HTN 5. HLP. PLAN: - ASA/Statin for life - BB and ACEI once BP allow, currently still borderline low. - PT as tolerated.
[2020-09-23] MEDS: Furosemide 40 MG TAB PO SCH (17:38)
[2020-09-23] MEDS: Atorvastatin Calcium 20 MG TAB PO SCH (20:51)
[2020-09-24] MEDS: Ketorolac Tromethamine 30 MG/ML VIAL IVP SCH ×3 (01:01→12:08)
[2020-09-24 06:08] VITALS: BMI 26.1
--- NOTE | 2020-09-24 06:14 | PDOC.FM ---
- Subjective Subjective: Patient feeling well this AM. Denies CP, dyspnea, N/V. Overall feeling well with no acute events. - Objective MAR Reviewed: Yes Vital Signs & Weight: Vital Signs (12 hours) Temp Pulse Resp BP Pulse Ox 09/24/20 04:27 97 09/24/20 04:00 98.6 F 65 18 116/61 96 09/23/20 20:00 99.1 F 76 16 115/56 L 97 Weight Admit Weight 83.325 kg Weight 82.645 kg Most Recent Monitor Data Heart Rate from ECG 78 NIBP 105/62 NIBP BP-Mean 76 Respiration from ECG 17 SpO2 98 I&O: 09/22/20 09/23/20 09/24/20 06:59 06:59 06:59 Intake Total 1361.1 600 1805 Output Total 1090 1215 Balance 271.1 -615 1805 Result Diagrams: 09/23/20 03:56 09/23/20 03:56 Phys Exam - Physical Examination Constitutional: NAD Respiratory: no wheezing, no rales, no rhonchi, clear to auscultation bilateral Cardiovascular: RRR, no significant murmur, no rub sternotomy healing well Gastrointestinal: soft, non-tender, no distention, positive bowel sounds Dx/Plan - Plan Plan: CAD and NSTEMI s/p 4V CABG - Presented with chest pain due to NSTEMI, was taken for angiocath which showed multi vessel disease - S/p 4V CABG by CV suglurdes Andrade 09/21/20. - Cardiology Dr Mckeon consulted, appreciate recs -Start BB and SANFORD once BP will allow - CV Surgery Dr. Andrade consulted, appreciate recs - Pain control with tylenol, tramadol, toradol, fentanyl - Continue atorvastatin 20 mg, aspirin HTN - BB and SANFORD once BP will allow MDD - Resume home medication Diet:HH DVT ppx: per CV surgery recs Code: full PCP: Dr. Hernandes APPLICATION SECURITY ARCHITECT Dispo: Patient is stable on telemetry floor. Continue PT. Appreciate CV surgery recommendations. DC today Addendum - Attending - Attending Attestation Date/Time: 09/24/20 [id number] I personally evaluated the patient and discussed the management with Dr. Hutchinson. I agree with the History, Examination, Assessment and Plan documented above with any addition or exceptions noted below.
--- NOTE | 2020-09-24 07:39 | DIS ---
DATE OF ADMISSION: 09/20/2020 DATE OF DISCHARGE: 09/24/2020 DIAGNOSES: 1. Coronary artery disease. 2. Status post [id number] myocardial infarction. 3. Hypertension. 4. Dyslipidemia. 5. Depression. PROCEDURES PERFORMED: 1. Cardiac catheterization. 2. Coronary artery bypass grafting x4 - left internal mammary artery to LAD, saphenous vein graft to diagonal, OM, and right coronary artery. DESCRIPTION OF HOSPITAL STAY: Mr. Gunter presented through the emergency department with chest pain. He eventually had positive troponins and was taken to the laborer concrete paving. He was found to have severe 3-vessel disease and underwent bypass the following morning. Postoperatively, he has done great. He has had no rhythm issues, being discharged home in good condition to follow up with me in 2 weeks. DISCHARGE MEDICATIONS: Include: 1. Aspirin 81 mg daily. 2. Plavix 75 mg daily. 3. Zocor 40 mg at bedtime. 4. Celexa 40 mg daily. 5. Tramadol 50 mg q.12 hours. Note, his blood pressure was not at the point of tolerating beta-fran or SANFORD inhibitor at this time. Job ID: [id number]
[2020-09-24] MEDS: Citalopram 20 MG TAB PO SCH (08:54)
[2020-09-24] MEDS: Aspirin Chewable 81 MG TAB PO SCH (08:54)
[2020-09-24] MEDS: Famotidine/PF 20 mg/2ml Vial SLOW IVP SCH (08:55)
[2020-09-24] MEDS ORDERED: Clopidogrel Bisulfate 75 MG TAB PO SCH (09:00)
[2020-09-24 12:07] VITALS: BP 107/58; TEMP 98.1
--- NOTE | 2020-09-26 06:33 | DIS ---
DATE OF ADMISSION: 09/20/2020 DATE OF DISCHARGE: 09/24/2020 RESIDENT: Bob Hutchinson MD ADMITTING ATTENDING: Dr. Avitia. DISCHARGE ATTENDING: Dr. Tolentino. CONSULTS: 1. Dr. Mckeon, Cardiology on 09/20. 2. Dr. Andrade, Cardiovascular Surgery on 09/21. PROCEDURES: The patient had a cardiac cath on 09/20 showing significant coronary artery disease that recommended proceeding to CABG. On 09/21, the patient had four-vessel CABG performed by Dr. Andrade. PRIMARY DIAGNOSIS: [id number] myocardial infarction. SECONDARY DIAGNOSES: Coronary artery disease, hypertension, depression, obsessive-compulsive disorder, hyperlipidemia. DISCHARGE MEDICATIONS: 1. Aspirin 81 mg p.o. daily. 2. Celexa 40 mg p.o. daily. 3. Plavix 75 mg p.o. daily. 4. Simvastatin 40 mg p.o. daily. 5. Tramadol 50 mg p.o. q.12 hours 30 tablets p.r.n. for pain. DISCONTINUED MEDICATIONS: None. HOSPITAL COURSE: The patient is a 69-year-old male with past medical history significant for hypertension and depression, who presented to the ED for chest pain. Chest pain initially described as unstable angina as the patient described chest pain that did not completely resolve with rest or nitroglycerin administration. The pain was mildly relieved with rest and the pain decreased from 6 to 3 with nitroglycerin administration. Cardiology was consulted from the ER and therapeutic Lovenox was started. The patient was taken back for cardiac cath, finding significant CAD and was then taken for a CABG as above. The patient tolerated the procedure well, spent 2 days in the CCU and was discharged in stable condition. The patient had no postoperative complications and was doing well at the time of discharge. See Dr. Andrade's summary for further details. DISPOSITION: Stable. DISCHARGE INSTRUCTIONS: 1. Location: Inpatient cardiac rehab. 2. Diet: Heart healthy. 3. Activity: As tolerated with help of therapists. 4. Followup: The patient is to follow up with PCP within 2 weeks, Cardiology within 4 weeks, and Dr. Andrade as needed. It should be discussed with PCP versus Cardiology to determine if the patient should be on high-dose statin as well as restarted on home losartan. Job ID: [id number]
== END 2020-09-24 13:15 | disposition home or self-care (01) | DRG 234 ==
LOC: ERS 08:47 → ERHOLD 11:14 → 2NO 15:20 → CCU 09-21 10:15 → 2NO 09-22 16:57
PROVIDERS: ADMIT Family Medicine; ATTEND Family Medicine
PROC: 4A023N7 Measurement of Cardiac Sampling and Pressure, Left Heart, Percutaneous Approach (ICD-10-PCS; 2020-09-20)
PROC: B2151ZZ Fluoroscopy of Left Heart using Low Osmolar Contrast (ICD-10-PCS; 2020-09-20)
PROC: B2111ZZ Fluoroscopy of Multiple Coronary Arteries using Low Osmolar Contrast (ICD-10-PCS; 2020-09-20)
PROC: 02100Z9 Bypass Coronary Artery, One Artery from Left Internal Mammary, Open Approach (ICD-10-PCS; principal; 2020-09-21)
PROC: 021209W Bypass Coronary Artery, Three Arteries from Aorta with Autologous Venous Tissue, Open Approach (ICD-10-PCS; 2020-09-21)
PROC: 06BQ4ZZ Excision of Left Saphenous Vein, Percutaneous Endoscopic Approach (ICD-10-PCS; 2020-09-21)
PROC: 5A1221Z Performance of Cardiac Output, Continuous (ICD-10-PCS; 2020-09-21)
DX: I21.4 Non-ST elevation (NSTEMI) myocardial infarction (principal); I25.110 Atherosclerotic heart disease of native coronary artery with unstable angina pectoris; Z20.822 Contact with and (suspected) exposure to COVID-19; I10 Essential (primary) hypertension; E78.5 Hyperlipidemia, unspecified; F32.9 Major depressive disorder, single episode, unspecified; G43.909 Migraine, unspecified, not intractable, without status migrainosus; F42.9 Obsessive-compulsive disorder, unspecified; E78.00 Pure hypercholesterolemia, unspecified; Z79.899 Other long term (current) drug therapy
CPT/HCPCS: 36415; 36416; 36430; 71045; 80048; 80053; 80061; 82553; 82805; 83036; 83690; 83880; 84443; 84484; 85025; 85379; 85610; 85730; 86850; 86900; 86901; 87635; 93005; 93010; 93458; 93798; 94002; 94150; 94760; 96372; 96374; J0171; J0690; J1100; J1642; J1644; J1650; J1815; J1885; J2001; J2150; J2250; J2270; J2370; J2405; J2440; J2704; J2720; J3010; J3370; J3475; J3480; P9045; Q9967; S0017; S0020; S0028; U0003; U0005